=== PATIENT | female | born 1995 | race African-American/Black ===

== ENCOUNTER 2024-01-11 12:18 | Emergency (ER) | payer SELFPAY ==
[~2024-01-11] VITALS: Ht 162.6 cm; Wt 56.0 kg
[2024-01-11 14:48] LABS: MEAN CELL VOLUME 88 fl (80.0-100.0); MEAN CORPUSCULAR HGB CONC 32 g/dl (33.0-37.0); MEAN PLATELET VOLUME 10.9 fl (7.4-10.4); PLATELET COUNT 156 K/mm3 (130-400); RED BLOOD COUNT 3.34 M/mm3 (4.10-5.30); REDCELL DISTRIBUTION WIDTH-CV 14.3 % (11.5-14.5)
[2024-01-11 14:51] LABS: HEMATOCRIT 29.5 % (37.0-47.0); HEMOGLOBIN 9.3 g/dl (12.5-16.0); MEAN CORPUSCULAR HEMOGLOBIN 28 pg (27-31)
[2024-01-11 15:02] LABS: ALBUMIN 3.1 g/dL (3.5-5.0); BILIRUBIN,TOTAL 0.1 mg/dL (0.2-1.2); CALCIUM 8.4 mg/dL (8.4-10.2); CREATININE, serum 0.65 mg/dL (0.57-1.11); TOTAL PROTEIN 7.6 g/dl (6.2-8.1)
[2024-01-11 15:43] LABS: BAND 3 % (0-10); BASOPHIL 1 % (0-2); EOSINOPHIL 1 % (0-4); LYMPHOCYTE 27 % (20.0-51.0); NEUTROPHILS 61 % (42.0-75.2); PLATELET ESTIMATE NORMAL (NORMAL)
[2024-01-11] MEDS ORDERED: PREDNISONE20 MG PO ×2 (15:59→18:01)
[2024-01-11 16:25] VITALS: BP 102/62; PULSE 79; TEMP 98.4
== END 2024-01-11 16:25 | disposition home or self-care (01) ==
LOC: COL.ER 12:18
PROVIDERS: Emergency Medicine
DX: M25.422 Effusion, left elbow (principal); M25.421 Effusion, right elbow; M25.462 Effusion, left knee; M25.461 Effusion, right knee; M25.442 Effusion, left hand; M25.441 Effusion, right hand; M25.474 Effusion, right foot; M25.475 Effusion, left foot